=== PATIENT | male | born 1945 | race Caucasian/White ===

== ENCOUNTER → 2018-12-28 | Outpatient (CLI) | payer MEDICARE, OTHER ==
[~2018-12-28] MED LIST: ALLOPURINOL 30300 M1 PO; COLACE100 MG PO; NEURONTIN 300300 M1 PO; NEXIUM40 MG PO; SIMVASTATIN40 MG PO
== END ==
LOC: M.ULTRA 12:13
DX: G62.9 Polyneuropathy, unspecified (principal); I70.8 Atherosclerosis of other arteries

== ENCOUNTER → 2018-12-31 | Outpatient (CLI) | payer MEDICARE, OTHER ==
[~2018-12-31] VITALS: Ht 182.9 cm; Wt 81.6 kg
[~2018-12-31] MED LIST changes: +PLAVIX 75 MG TA75 M1 PO
[2018-12-31 13:38] VITALS: BP 140/77
== END ==
LOC: M.INT 12:37
DX: I70.213 Atherosclerosis of native arteries of extremities with intermittent claudication, bilateral legs (principal); Z87.891 Personal history of nicotine dependence

== ENCOUNTER → 2019-01-04 | Outpatient (CLI) | payer MEDICARE, OTHER | LOC: M.CT 06:52 | DX: I77.4 Celiac artery compression syndrome (principal); I70.1 Atherosclerosis of renal artery; K55.1 Chronic vascular disorders of intestine; I70.8 Atherosclerosis of other arteries ==

== ENCOUNTER → 2019-01-10 | Outpatient (CLI) | payer MEDICARE, OTHER ==
[~2019-01-10] VITALS: Ht 182.9 cm; Wt 81.6 kg
[2019-01-10] VITALS (7 sets, daily range): BP systolic 145–176; BP diastolic 47–78
[2019-01-10 09:25] LABS: HEMATOCRIT 46.4 % (42.0-52.0); HEMOGLOBIN 15.5 gm/dL (14.0-18.0); MCHC 33.5 g/dL (28.0-37.0); MCV 95.6 fL (80.0-100.0); MPV 8.8 fl. (7.2-11.1); RBC 4.86 mil/uL (4.50-6.00); RDW-CV 13.5 % (10.5-14.5)
[2019-01-10 09:35] LABS: APTT 26.8 Seconds (25.0-31.3); PROTIME 10.7 Seconds (9.20-11.50)
[2019-01-10 09:38] LABS: ALBUMIN 3.9 g/dL (3.4-5.0); CREATININE 1.2 mg/dL (0.6-1.3); POTASSIUM 3.6 mmol/L (3.5-5.1); TOTAL BILIRUBIN 0.4 mg/dL (<0.1-1.0); TOTAL PROTEIN 7.7 g/dL (6.4-8.2)
== END | disposition home or self-care (01) ==
LOC: M.INT 08:40
PROVIDERS: Radiology Diagnostic Radiology
DX: I70.213 Atherosclerosis of native arteries of extremities with intermittent claudication, bilateral legs (principal); K21.9 Gastro-esophageal reflux disease without esophagitis; E78.00 Pure hypercholesterolemia, unspecified; Z98.890 Other specified postprocedural states; Z82.49 Family history of ischemic heart disease and other diseases of the circulatory system; Z80.9 Family history of malignant neoplasm, unspecified; Z79.01 Long term (current) use of anticoagulants

== ENCOUNTER → 2019-02-07 | Outpatient (CLI) | payer MEDICARE, OTHER | LOC: M.ULTRA 12:23 | DX: I73.9 Peripheral vascular disease, unspecified (principal) ==

== ENCOUNTER → 2019-02-24 | Outpatient (CLI) | payer MEDICARE, OTHER ==
[~2019-02-24] VITALS: Ht 182.9 cm; Wt 79.4 kg
[2019-02-24 09:42] LABS: HEMATOCRIT 48.1 % (42.0-52.0); HEMOGLOBIN 16.5 gm/dL (14.0-18.0); MCH 33.3 pg (26.0-34.0); MCHC 34.4 g/dL (28.0-37.0); MCV 96.9 fL (80.0-100.0); MPV 8.9 fl. (7.2-11.1); RBC 4.96 mil/uL (4.50-6.00); WBC 5.4 thou/uL (4.0-11.0)
[2019-02-24 09:53] LABS: CALCIUM 9.1 mg/dL (8.5-10.1); POTASSIUM 3.9 mmol/L (3.5-5.1)
[2019-02-24 09:55] VITALS: BP 146/69; BP 150/69
[2019-02-24 09:55] LABS: APTT 26.5 Seconds (25.0-31.3); PROTIME 10.7 Seconds (9.20-11.50)
[2019-02-24 13:10] VITALS: BP 170/83
[2019-02-24 13:30] VITALS: BP 155/78
[2019-02-24 13:45] VITALS: BP 161/81
[2019-02-24 14:00] VITALS: BP 162/76
== END | disposition home or self-care (01) ==
LOC: M.INT 08:52
PROVIDERS: Radiology Diagnostic Radiology
DX: I70.211 Atherosclerosis of native arteries of extremities with intermittent claudication, right leg (principal); M79.652 Pain in left thigh; E78.00 Pure hypercholesterolemia, unspecified; K21.9 Gastro-esophageal reflux disease without esophagitis; F17.210 Nicotine dependence, cigarettes, uncomplicated; Z98.52 Vasectomy status; Z98.890 Other specified postprocedural states; Z82.49 Family history of ischemic heart disease and other diseases of the circulatory system; Z83.3 Family history of diabetes mellitus; Z79.899 Other long term (current) drug therapy

== ENCOUNTER → 2019-10-24 | Outpatient (CLI) | payer MEDICARE, OTHER | LOC: M.MRI 10-18 10:20 | DX: M25.78 Osteophyte, vertebrae (principal); M50.323 Other cervical disc degeneration at C6-C7 level; M12.88 Other specific arthropathies, not elsewhere classified, other specified site ==

== ENCOUNTER 2020-03-17 07:52 | Emergency (ER) | payer MEDICARE, OTHER ==
[~2020-03-17] VITALS: Ht 182.9 cm; Wt 79.4 kg
[2020-03-17 08:50] LABS: URINE BLOOD TRACE (Negative); URINE CLARITY CLEAR; URINE COLOR YELLOW; URINE GLUCOSE-RANDOM TRACE (Negative); URINE KETONES TRACE (Negative); URINE LEUKOCYTES-REFLEX NEGATIVE (Negative); URINE NITRITE-REFLEX NEGATIVE (Negative); URINE PROTEIN TRACE (Negative); URINE SPECIFIC GRAVITY 1.025 (1.005-1.030)
[2020-03-17 08:53] LABS: ICTOTEST (BILI CONFIRMATORY) Negative (Negative); URINE BILIRUBIN 1+ (Negative)
[2020-03-17 08:54] LABS: ABSOLUTE BASOPHILS 0.1 thou/uL (0.0-0.2); ABSOLUTE EOSINOPHILS 0.1 thou/uL (0.0-0.7); ABSOLUTE LYMPHOCYTES 1.1 thou/uL (0.8-5.3); ABSOLUTE MONOCYTES 0.8 thou/uL (0.0-1.2); ABSOLUTE NEUTROPHILS 4.6 thou/uL (1.6-8.1); EOSINOPHILS 1.2 %; HEMATOCRIT 41.3 % (42.0-52.0); HEMOGLOBIN 14.3 gm/dL (14.0-18.0); MCH 32.4 pg (26.0-34.0); MCHC 34.5 g/dL (28.0-37.0); MCV 93.9 fL (80.0-100.0); MONOCYTES 12.3 %; MPV 7.6 fl. (7.2-11.1); NUCLEATED RBCS 0 /100WBC; PLATELET COUNT* 221 thou/uL (150-400); POLYS 69.5 %; RDW-CV 14.3 % (10.5-14.5); WBC 6.6 thou/uL (4.0-11.0)
[2020-03-17 09:04] LABS: CALCIUM 8.9 mg/dL (8.5-10.1); POTASSIUM 4.2 mmol/L (3.5-5.1)
[2020-03-17 09:09] LABS: ALBUMIN 3.2 g/dL (3.4-5.0); TOTAL BILIRUBIN 1.1 mg/dL (<0.1-1.0); TOTAL PROTEIN 7.2 g/dL (6.4-8.2)
[2020-03-17] MEDS ORDERED: ULTRAM 50MG TAB50 MG PO (10:02)
[2020-03-17] MEDS ORDERED: DIAZEPAM 5 MG5 M1 PO (10:02)
[2020-03-17] MEDS ORDERED: MEDROLDOSEPACK PO (10:02)
[2020-03-17 10:14] VITALS: BP 139/73
--- NOTE | 2020-03-18 15:31 | EKG ---
[place] [address] ELECTROCARDIOGRAM REPORT Name: JENNIFER OLGUIN II Room: [facility]#: [id number] Admission: 03/17/20 Attend Phys: Discharge: 03/17/20 Date of : 49 Date of Service: 03/17/20 0852 Report #: [id number] THIS REPORT FOR: //name// [facility] ED Test Date: 2020-03-17 Test Time: 08:52:59 Pat Name: JENNIFER OLGUIN Department: Room: Gender: Construction Ironworker: : 1945 Requested By: Samantha Crane Order Number: [id number] MD: Napoleon Jerez Measurements Intervals [place] Rate: 67 P: 36 ID: 175 QRS: 6 QRSD: 89 T: 38 QT: 382 QTc: 404 Interpretive Statements Sinus rhythm Probable left atrial enlargement Baseline wander in lead(s) V1 Compared to ECG 02/27/2014 09:19:00 No significant changes Electronically Signed On 03-18-2020 15:29:38 CDT by Napoleon Jerez [email or web address] <ELECTRONICALLY SIGNED> By: Toby Jerez MD, [facility] 03/18/20 1529 0852 0852 Toby Jerez MD, [facility] /EPI
== END 2020-03-17 10:15 | disposition home or self-care (01) ==
LOC: M.ERS 07:52
PROVIDERS: Personal Emergency Response Attendant
DX: M54.5 Low back pain (principal); M79.18 Myalgia, other site; K21.9 Gastro-esophageal reflux disease without esophagitis; E78.00 Pure hypercholesterolemia, unspecified; G62.9 Polyneuropathy, unspecified

== ENCOUNTER → 2020-06-13 | Outpatient (CLI) | payer MEDICARE, OTHER ==
[~2020-06-13] VITALS: Ht 182.9 cm; Wt 78.5 kg
[~2020-06-13] MED LIST changes: +DIAZEPAM 5 MG5 M1 PO; +MEDROLDOSEPACK PO; +ULTRAM 50MG TAB50 MG PO
== END ==
LOC: M.ULTRA 06-06 11:40
PROVIDERS: ATTEND Internal Medicine
DX: I73.9 Peripheral vascular disease, unspecified (principal); I77.1 Stricture of artery

== ENCOUNTER → 2020-07-10 | Outpatient (CLI) | payer MEDICARE, OTHER ==
[~2020-07-10] VITALS: Ht 182.9 cm; Wt 78.5 kg
[2020-07-10 07:58] VITALS: BP 176/76
[2020-07-10 08:03] LABS: HEMATOCRIT 42.3 % (42.0-52.0); HEMOGLOBIN 14.7 gm/dL (14.0-18.0); MCH 32.7 pg (26.0-34.0); MCHC 34.7 g/dL (28.0-37.0); MCV 94.3 fL (80.0-100.0); MPV 7.9 fl. (7.2-11.1); RBC 4.48 mil/uL (4.50-6.00); RDW-CV 16.4 % (10.5-14.5); WBC 7.2 thou/uL (4.0-11.0)
[2020-07-10 08:13] LABS: PROTIME 10.7 Seconds (9.20-11.50)
[2020-07-10 08:35] LABS: CALCIUM 8.6 mg/dL (8.5-10.1); POTASSIUM 4.1 mmol/L (3.5-5.1)
[2020-07-10 11:38] VITALS: BP 180/79
[2020-07-10 12:30] VITALS: BP 170/79
== END | disposition home or self-care (01) ==
LOC: M.LAB 07:18 → M.INT 09:00
PROVIDERS: ATTEND Radiology Diagnostic Radiology
DX: I70.213 Atherosclerosis of native arteries of extremities with intermittent claudication, bilateral legs (principal); R93.89 Abnormal findings on diagnostic imaging of other specified body structures; E78.00 Pure hypercholesterolemia, unspecified; G62.9 Polyneuropathy, unspecified; K21.9 Gastro-esophageal reflux disease without esophagitis; M10.9 Gout, unspecified; F17.210 Nicotine dependence, cigarettes, uncomplicated; Z98.890 Other specified postprocedural states; Z79.899 Other long term (current) drug therapy; Z98.52 Vasectomy status

== ENCOUNTER → 2020-08-20 | Outpatient (CLI) | payer MEDICARE, OTHER ==
[~2020-08-20] VITALS: Ht 182.9 cm; Wt 79.5 kg
[2020-08-20 12:18] VITALS: BP 145/61; BP 152/111
== END ==
LOC: M.ULTRA 07-11 07:31
PROVIDERS: ATTEND Radiology Diagnostic Radiology
DX: I70.202 Unspecified atherosclerosis of native arteries of extremities, left leg (principal)

== ENCOUNTER → 2021-12-20 | Outpatient (CLI) | payer MEDICARE, OTHER | LOC: M.ULTRA 12:35 | PROVIDERS: ATTEND Internal Medicine | DX: I73.9 Peripheral vascular disease, unspecified (principal) ==